=== PATIENT | female | born 1970 | race Caucasian/White ===

== ENCOUNTER 2016-12-28 18:02 | Emergency (ER) | payer BC ==
[~2016-12-28] VITALS: Ht 154.9 cm; Wt 78.0 kg
[~2016-12-28 18:02] MED LIST: AMLO-145 PO; CEPH500C PO; HYDR-842 PO; LISI20TA11 PO; LISI40TA9 PO; PRED20TA PO
[2016-12-28 18:11] VITALS: Ht 154.9 cm; Wt 78.0 kg
[2016-12-28] MEDS ORDERED: AZIT250T94 PO (18:55)
[2016-12-28] MEDS ORDERED: SODI30SP2 NS (18:55)
[2016-12-28] MEDS ORDERED: CETI10CA PO (18:56)
--- NOTE | 2016-12-28 18:59 | ERD ---
ER Documentation Chief Complaint Date/Time DATE: 12/28/16 TIME: 18:57 Chief Complaint PT with L ear pain and decreased hearing ax 2 months. HPI Patient is a 46-year-old female who presents to the ED with cough, congestion on and off 3 months. Patient also complains of left ear pain and stuffiness. She states that she has used Corticosporin otic drops for her ear as prescribed by her doctor which has not helped. She denies using Q-tips. She denies headache or dizziness. Denies chest pain or shortness of breath. Patient is a smoker and smokes about half a pack a day. She denies leg pain or leg swelling. ROS All systems reviewed and are negative except as per history of present illness. Medications Home Meds Active Scripts Cetirizine Hcl* (Zyrtec*) 10 Mg Capsule, 10 MG PO DAILY, #10 TAB.CHEW Prov:ROLDAN SCRUGGS PA-C 12/28/16 Sodium Chloride (Saline Nasal [place]) 30 Ml [place], 30 ML NS BID for 14 Days, SPRAY Prov:ROLDAN SCRUGGS PA-C 12/28/16 Azithromycin* (Zithromax*) 250 Mg Tablet, 250 MG PO .ZPACK DIRECTED, #6 TAB TAKE 500 MG (2 TABS) THE FIRST DAY THEN 250 MG (1 TAB) DAYS 2-5 Prov:ROLDAN SCRUGGS PA-C 12/28/16 Cephalexin* (Cephalexin*) 500 Mg Capsule, 500 MG PO Q8, #21 CAP Prov:KELSEY MERAZ DO 05/07/16 Prednisone* (Prednisone*) 20 Mg Tab, 40 MG PO DAILY, #4 TAB Prov:KELSEY MERAZ DO 05/07/16 Hydroxyzine Hcl* (Atarax*) 25 Mg Tab, 25 MG PO Q6H Y for ITCHING, #20 TAB Prov:KELSEY MERAZ DO 05/07/16 Amlodipine Besylate* (Amlodipine Besylate*) 5 Mg Tablet, 5 MG PO DAILY, #30 TAB Prov:KELSEY MERAZ DO 05/07/16 Lisinopril* (Lisinopril*) 40 Mg Tablet, 40 MG PO DAILY, #30 TAB Prov:KELSEY MERAZ DO 05/07/16 Reported Medications Lisinopril* (Lisinopril*) 20 Mg Tablet, 20 MG PO DAILY, #30 TAB 05/07/16 Allergies Allergies: Coded Allergies: No Known Allergy (Unverified , 12/28/16) PMhx/Soc History of Surgery: No Anesthesia Reaction: No Hx Neurological Disorder: No Hx Respiratory Disorders: No Hx Cardiac Disorders: Yes (htn) Hx Psychiatric Problems: No Hx Miscellaneous Medical Probl: No Hx Alcohol Use: Yes (socially) Hx Substance Use: No Hx Tobacco Use: Yes (pack/ day) Smoking Status: Current every day smoker FmHx Family History: No coronary disease, No diabetes, No other Physical Exam Vitals Vital Signs Date Time Temp Pulse Resp B/P Pulse Ox O2 Delivery O2 Flow Rate FiO2 12/28/16 18:11 98.3 98 16 137/91 97 Physical Exam GENERAL: Well-developed, well-nourished female. Appears in no acute distress. HEAD: Normocephalic, atraumatic. EYES: Pupils are equally reactive bilaterally. EOMs grossly intact. No conjunctival erythema. ENT: Moist mucous membranes. No uvula deviation. No kissing tonsils. No exudates. NECK: Supple. No lymphadenopathy or thyromegaly. No meningismus. negative kernig. negative brudinski. LUNG: Clear to auscultation bilaterally. No rhonchi, wheezing, rales or coarse breath sounds. HEART: Regular rate and rhythm. No murmurs, rubs or gallops. ABDOMEN: No scars, ecchymosis or rashes noted. Soft, nontender, and nondistended. Positive bowel sounds in all four quadrants. No rebound tenderness , no guarding. (-) McBurneys point tenderness. No CVA tenderness. BACK: No midline tenderness. Extremities: Equal pulses bilaterally. No peripheral clubbing, cyanosis or edema. No unilateral leg swelling. NEUROLOGIC: Alert and oriented. Moving all four extremities. 5/5 strength in all extremities. Normal speech. Steady gait. SKIN: Normal color. Warm and dry. No rashes or lesions. Capillary refill < 2 seconds Procedures/MDM ER COURSE: I kept the patient and/or family informed of laboratory and diagnostic imaging results throughout the emergency room course. MEDICAL DECISION MAKING: This is a 46-year-old female who presents with cough, congestion and left ear pain on and off 3 months. Vital signs were reviewed. Patient is afebrile. Patient is not hypoxic. Patient is nontoxic or ill-appearing. Patient's cough is likely chronic bronchitis. Patient's exam was within normal limits. Low suspicion for pneumonia, PE, pneumothorax, ACS, epiglottitis, obstruction, TB, pertussis, meningitis, sepsis. Patient does not show signs of respiratory distress. Low suspicion for otitis externa, malignant otitis externa, TM perforation, mastoiditis, acute otitis media. DISCHARGE: At this time, patient is stable for discharge and outpatient management with no new complaints during the ER course. Patient was sent home with Zyrtec, saline nasal spray and azithromycin advised patient to follow-up with her primary care provider and to see a ENT doctor for further evaluation. I did spend time discussing with patient smoking cessation.. Patient will be discharged home with instructions to recheck for new or worsening symptoms such as fever, nausea , weakness, LOC and to follow up with primary care in the next 1-2 days. Patient was advised to return to the ER for any new or worsening symptoms. Plan was discussed and patient and/or family understands and agrees. Home instructions were given. Departure Diagnosis: Primary Impression: URI, acute Condition: Stable Patient Instructions: Uri, Viral, No Abx (Adult) Additional Instructions: Call your primary care doctor TOMORROW for an appointment during the next 1-2 days.See the doctor sooner or return here if your condition worsens before your appointment time. ROLDAN SCRUGGS PA-C Dec 28, 2016 18:59
[2016-12-28 19:05] VITALS: BP 132/77; PULSE 82; RESP 16; TEMP 98.3
== END 2016-12-28 19:06 | disposition home or self-care (01) ==
LOC: FTE 18:02
DX: J06.9 Acute upper respiratory infection, unspecified (principal); I10 Essential (primary) hypertension; F17.210 Nicotine dependence, cigarettes, uncomplicated
CPT/HCPCS: 99283